=== PATIENT | female | born 1980 | race Caucasian/White ===

== ENCOUNTER → 2020-11-19 | Outpatient (CLI) | payer OTHER | LOC: MC.RAD 11-10 09:00 | DX: N63.32 Unspecified lump in axillary tail of the left breast (principal); N60.12 Diffuse cystic mastopathy of left breast; N60.11 Diffuse cystic mastopathy of right breast; Z98.82 Breast implant status ==

== ENCOUNTER → 2020-11-23 | Outpatient (CLI) | payer OTHER | LOC: MC.RAD 07:59 | DX: N60.02 Solitary cyst of left breast (principal) ==